=== PATIENT | female | born 1975 | race Caucasian/White ===

== ENCOUNTER 2023-08-28 15:39 | Emergency (ER) | payer SELFPAY ==
[~2023-08-28] VITALS: Ht 144.8 cm; Wt 64.4 kg
[~2023-08-28 15:39] MED LIST: GABA100C PO; NAPR-54 PO
[2023-08-28 15:50] VITALS: BP 124/85; PULSE 77; RESP 20; TEMP 97.7; O2SAT 100
[2023-08-28] MEDS ORDERED: ACET-10509 PO (19:58)
[2023-08-28] MEDS ORDERED: MELA10CA PO (19:59)
[2023-08-28] MEDS ORDERED: KETOROLAC 30 MG/ML VIAL ONE (20:22)
[2023-08-28] MEDS ORDERED: KETOROLAC 30 MG/ML VIAL IM ONE (20:25)
[2023-08-28 20:30] VITALS: BP 124/85; PULSE 77; RESP 20; TEMP 97.7; O2SAT 100
== END 2023-08-28 20:30 | disposition home or self-care (01) ==
LOC: MED 15:39
DX: S09.90XA Unspecified injury of head, initial encounter (principal); E04.1 Nontoxic single thyroid nodule; R55 Syncope and collapse; Z79.899 Other long term (current) drug therapy; W18.30XA Fall on same level, unspecified, initial encounter; Y93.89 Activity, other specified; Y92.89 Other specified places as the place of occurrence of the external cause; Y99.8 Other external cause status
CPT/HCPCS: 70450; 72125; 93005; 96372; 99285; J1885

== ENCOUNTER 2024-02-25 17:03 | Emergency (ER) | payer OTHER ==
[~2024-02-25] VITALS: Ht 149.9 cm; Wt 68.0 kg
[~2024-02-25 17:03] MED LIST changes: +ACET-10509 PO; +MELA10CA PO; +NAPR-337 PO; -NAPR-54 PO
[2024-02-25 17:15] VITALS: BP 132/85; PULSE 79; RESP 18; TEMP 98.1; O2SAT 99
[2024-02-25] MEDS: IBUPROFEN 600 MG TAB PO ONE (18:24)
[2024-02-25] MEDS ORDERED: ACET-8905 PO (19:10)
[2024-02-25] MEDS ORDERED: IBUP-2213 PO (19:10)
== END 2024-02-25 19:29 | disposition home or self-care (01) ==
LOC: MED 17:03
DX: M25.551 Pain in right hip (principal); Z79.899 Other long term (current) drug therapy
CPT/HCPCS: 73502; 99283